=== PATIENT | female | born 2000 | race Caucasian/White ===

== ENCOUNTER 2025-05-22 17:26 | Emergency (ER) | payer OTHER, SELFPAY ==
--- OUTSIDE RECORDS SUMMARY | 2025-05-22 17:44 | XMS_ITS | Clinical Summary ---
Author Organization [facility] Address [address] [place] [address] Care Team Providers Care School Bus Dispatcher Name Role Phone Unavailable Primary Care Provider Unavailabl e Source Comments You are receiving this document as you are listed as the primary care provider,follow-up provider, or the patient has been referred to you for consultation.This is in compliance with the Medicare andMedicaid EHR Incentive Program,which states Providers who transition their patient to another setting of careor provider of care or refers their patient to another provider of care shouldprovide summary care record for each transition of care or referral. On license of [facility] Allergies Active AllergyReactionsCriticalityNoted DateCommentsAmoxicillinOther, see rvzyunln25/02/2018Kiwi YidwddaDztnqobxrlhYcus59/05/2017Molds & SmutsOther, see uxfmttbc87/05/2017OtherHives,DlmweikVrsc50/05/2017 Dogs and cats. Medications MedicationSigDispense QuantityRefillsLast FilledStart DateEnd DateStatus ALBUterol sulfate HFA 108 (90 Base) MCG/ACT inhaler Inhale 2 Puffs every 6 hours.Active EPINEPHrine (EPIPEN) 0.3 MG/0.3ML injection Inject 0.3 mL (0.3 mg) intramuscularly.Active predniSONE (DELTASONE) 20 MG tablet Take 2 tabs (40 mg) daily for 5 days. Take with food. 10 Tablet 5Active Social History Tobacco UseTypesPacks/DayYears UsedDateSmoking Tobacco: Every DayCigarettes Tobacco Cessation:Ready to Q uit: Not Asked; Counseling Given: Not Answered CommentsNoSex and Gender InformationValueDate RecordedSex Assigned at BirthNot on fileLegal RpuIxdssg06/22/2025 4:00 PM CSTGender IdentityNot on file Sexual OrientationNot on file Last Filed Vital Signs Vital SignReadingTime TakenCommentsBlood Griubyac902/52007/25/2024 4:12 PM BUDGET ASSISTANT Emhjp3231/22/2025 4:12 PM EIQGzrmcetrcrz21.7 ??C (98 ??F)07/25/2024 4:12 PM BUDGET ASSISTANT Respiratory Viuk426807/25/2024 4:12 PM CSTOxygen Rrqakqoydn94%07/25/2024 4:12 PM CSTInhaled Oxygen Concentration--Weight--Height--Body Mass Index-- Plan of Treatment Health MaintenanceDue DateLast DoneCommentsCervical Cancer Screening Due 2000Hep C Screening (Preventive Services)2000HPV Vaccine (1 - 3-dose series)2015HIV Screening (Preventive Services)2016Adult Preventive Visit2018DTaP/Tdap/Td Vaccine (1 - Tdap)2019HepB Vaccine (1) 2019Pneumococcal Vaccine (1 of 2 - PCV)05/16/20198911Wnklycsvx29/09/2022 1COVID-19 Vaccine (1 - season)2025Influenza Vaccine (#1) 2025Zoster/Shingles Vaccine (1 of 2)2050HepA VaccineAged OutNo longer eligible based on patient's age to complete this topicHib VaccineAged Out No longer eligible based on patient's age to complete this topicIPV (Polio) VaccineAged OutNo longer eligible based on patient's age to complete this topic MCV4 VaccineAged OutNo longer eligible based on patient's age to complete this topicMeningococcal B VaccineAged OutNo longer eligible based on patient's age to complete this topic Insurance
--- OUTSIDE RECORDS SUMMARY | 2025-05-22 17:44 | XMS_ITS | Clinical Summary ---
Author Organization [facility] Address [address] [place] [address] Care Team Providers Care Bag Builder Name Role Phone Bessy Norman MD Unavailable [phone] Morgan Bentley MD Unavailable No Ref-Primary, Physician Primary Care Provider Allergies Active AllergyReactionsCriticalityNoted EfxsGmldaehvGpjqncvasma77/02/2018Animal DanderHives,Cabbwya3302/05/2017 Dogs and cats. CkrqNfgapzsflgzVelq27/05/3767Vehc55/05/2017 Medications MedicationSigDispense QuantityRefillsLast FilledStart DateEnd DateStatus norethindrone-ethinyl estradiol-iron (ESTROSTEP FE) 1-20/1-30/1-35 MG-MCG per tablet Indications:Generalized morphea,Chronic bilateral low back pain without sciatica Take 1 tablet by mouth dailyActive EPINEPHrine (EPIPEN/ADRENACLICK/OR ANY BX GENERIC EQUIV) 0.3 MG/0.3ML injection 2-pack Inject 0.3 mg into the muscle as needed for anaphylaxisActive PARoxetine HCl (PAXIL PO) Take 10 mg by mouth dailyActive BusPIRone HCl (BUSPAR PO) Active albuterol (PROAIR HFA/PROVENTIL HFA/VENTOLIN HFA) 108 (90 Base) MCG/ACT Inhaler Inhale 2 puffs into the lungs every 6 hoursActive Active Problems ProblemNoted DateDiagnosed DateGeneralized uplplpa2302/05/2017Back pain02/05/2017 Social History Tobacco UseTypesPacks/DayYears UsedDateSmoking Tobacco: Every DaySmokeless Tobacco: NeverAdolescent EducationAnswerDate RecordedGetting School Help Needed Not on file3CommentsNoSex and Gender InformationValueDate RecordedSex Assigned at YqdakUrdsfx24/10/2024 9:14 AM CDTLegal SexFemale 08/23/2020 10:50 AM CDTGender AqdxgsolMbpqkj04/10/2024 9:14 AM CDTSexual SzydusxhziuQffljkyr22/10/2024 9:14 AM CDT Last Filed Vital Signs Vital SignReadingTime TakenCommentsBlood Vrlkhewg387/7306/12/2024 10:30 AM TAPE EDGE MACHINE OPERATOR Vtmfy76279/10/2025 10:30 AM NDSVadlujvhwmp44.4 ??C (101.2 ??F)06/12/2024 10:30 AM CSTRespiratory Cdki256906/12/2024 10:30 AM CSTOxygen Nbwcokodjh90%06/12/2024 10:30 AM CSTInhaled Oxygen Concentration--Ehtyzm44.7 kg (140 lb 6.9 oz) 06/12/2024 10:30 AM JOSWcxtdb320 cm (5' 3)06/12/2024 10:30 AM CSTBody Mass Index24.8806/12/2024 10:30 AM TAPE EDGE MACHINE OPERATOR Plan of Treatment Health MaintenanceDue DateLast DoneCommentsADVANCE CARE UQFFGANO2000ANNUAL REVIEW OF HM CRANKK80 2000YEARLY PREVENTIVE VISIT2003HPV VACCINE (1 - 3-dose series)2015HEPATITIS C KOLQAZCSB54/14/2018HEPATITIS B VACCINE (1 of 3 - 19+ 3-dose series)2019PHQ-2 (once per calendar year)2024PAP 502COVID-19 VACCINE (1 - 2024- season)2025INFLUENZA VACCINE (#1)2025DTAP/TDAP/TD VACCINE (1 - Tdap)2025ZOSTER VACCINE (1 of 2)2050HIV OXDOGBOKXIwufmemuy13/30/2017CHLAMYDIA SCREENINGDiscontinued 08/09/2020, 10/19/2019, 12/19/2017, Additional history existsMENINGITIS B VACCINEAged OutNo longer eligible based on patient's age to complete this topic MENINGITIS VACCINEAged OutNo longer eligible based on patient's age to complete this topicPNEUMOCOCCAL VACCINE: PEDIATRICS (0 to 5 YEARS) AND AT-RISK PATIENTS (6 to 49 YEARS)Aged OutNo longer eligible based on patient's age to complete this topic Procedures Procedure NamePriorityDate/TimeAssociated DiagnosisCommentsGYNECOLOGIC CYTOLOGY Swzaajr3106/19/2021 2:45 PM TAPE EDGE MACHINE OPERATOR Encounter for gynecological examination (general) (routine) without abnormal findings [ICD-10-CM] CHLAMYDIA TRACHOMATIS WBXUknrnjv25/09/2021 2:35 PM TAPE EDGE MACHINE OPERATOR HIV ANTIGEN ANTIBODY SKVOBJzgbnzy13/30/2017 2:20 PM TAPE EDGE MACHINE OPERATOR from Last 3 Months or Most Recently Relevant to Health Maintenance Results * Gynecologic Cytology (PAP) (06/19/2021 2:45 PM TAPE EDGE MACHINE OPERATOR)ComponentValueRef RangeTest MethodAnalysis TimePerformed AtPathologist SignatureInterpretationNegative for Intraepithelial Lesion or Malignancy (NILM)06/21/2021 11:26 AM [facility] at 1126 CSTComment Papanicolaou Test Limitations: Cervical cytology is a screening test with limited sensitivity, and regular screening is critical for cancer prevention. Pap tests are primarily effective for the diagnosis/prevention of squamous cell carcinoma, not adenocarcinoma or other cancers. 06/21/2021 11:26 AM CSTSJO LABORATORYSpecimen AdequacySatisfactory for evaluation, endocervical/transformation zone component xyesdai6106/21/2021 11:26 AM CSTSJO LABORATORYClinical Fzhkswcueozzllf44/19/2022 11:26 AM CSTSJO LABORATORYReflex TestingYes if ASCUS06/21/2021 11:26 AM [facility] Previous Abnormal?No06/21/2021 11:26 AM CSTSJO LABORATORYPerforming LabsThe technical component of this testing was completed at [facility] Hqwgmldylq31/19/2022 11:26 AM [facility] LABORATORYSpecimen (Source) Anatomical Location / LateralityCollection Method / VolumeCollection Time Received TimeBrushingENDOCERVICAL STRUCTURE / Eoeuzbf2606/19/2021 2:45 PM TAPE EDGE MACHINE OPERATOR 06/20/2021 6:57 AM TAPE EDGE MACHINE OPERATOR Narrative Authorizing ProviderResult TypeResult StatusWhallison SHERMAN Final ResultPerforming OrganizationAddressCity/State/ZIP CodePhone Number [facility] [address] [address], [facility] [phone] * Chlamydia trachomatis PCR (08/09/2020 2:35 PM TAPE EDGE MACHINE OPERATOR)ComponentValueRef RangeTest MethodAnalysis TimePerformed AtPathologist SignatureChlamydia Trachomatis ChkoopesCaiixsat88/11/2021 1:08 PM [facility]STGLAC[facility] LABORATORYSpecimen (Source)Anatomical Location / LateralityCollection Method / VolumeCollection TimeReceived TimeBody fluid specimen (specimen)ENDOCERVICAL STRUCTURE / Vhjoada0008/09/2020 2:35 PM CST08/09/2020 5:47 PM TAPE EDGE MACHINE OPERATOR Narrative Authorizing ProviderResult TypeResult StatusAmber [facility] ORDERABLESFinal ResultPerforming OrganizationAddressCity/State/ZIP Code Phone Number [facility] [address] [address], [facility] [phone] [facility] [address] [place] [address] * HIV Antigen Antibody Combo (05/02/2017 2:20 PM TAPE EDGE MACHINE OPERATOR)ComponentValueRef RangeTest MethodAnalysis TimePerformed AtPathologist SignatureHIV Antigen Antibody UmnxyDrsiaahkLzmlqddo20/30/2017 7:54 PM CSTGLACIAL RIDGE [facility] LABORATORYSpecimen (Source)Anatomical Location / LateralityCollection Method / VolumeCollection TimeReceived TimeBlood specimen (specimen)05/02/2017 2:20 PM CST05/02/2017 6:15 PM TAPE EDGE MACHINE OPERATOR Narrative Authorizing ProviderResult TypeResult StatusWhithieu DAVILA-CLAMallika - BLOOD ORDERABLESFinal ResultPerforming OrganizationAddressCity/State/ZIP CodePhone Number [facility] [address] [place] [address], [facility] [address] [place] [phone] from Last 3 Months or Most Recently Relevant to Health Maintenance Insurance * Guarantor: Viki LERMA TypeRelation to PatientDate of BirthPhone Billing AddressPersonal/UhtjlpEuvqts21/25/1975 [place] [address] * Guarantor: Viki LERMA TypeRelation to PatientDate of BirthPhone Billing AddressPersonal/NgoupwHkmxgr90/25/1975 [place] [address] Care Teams Team MemberRelationshipSpecialtyStart DateEnd Date No Ref-Primary, Physician PCP - General06/12/24 Bessy Norman MD [facility] [address] [address] MDPediatric Rheumatology01/23/17 Morgan Bentley MD [address] [place] [address] MDDermatology02/05/17
[2025-05-22 17:50] VITALS: BP 131/78; PULSE 109; RESP 20; TEMP 37.2; O2SAT 96; BMI 24.6
[2025-05-22 18:46] LABS: Strep A DNA Probe* NOT DETECTED (Not Detectd)
[2025-05-22 19:00] LABS: PCR FLU A Negative PCR FLU A (Negative); PCR FLU B Negative PCR FLU B (Negative); PCR RSV Negative PCR RSV (Negative); SARS PCR* Negative SARS-CoV-2 (Negative)
--- NOTE | 2025-05-22 20:15 | ED_ITS ---
HPI - General Adult General Date Seen: 05/22/25 Chief complaint: Sore Throat Stated complaint: Sore Throat, Fever, Ear Pain Time Seen by Provider: 05/22/25 20:14 History of Present Illness HPI narrative: 25-year-old female presenting to the ER today with fever, sore throat, earache. She woke up this morning with symptoms, in particular, a sore throat. She had a fever up to 101. She does have a history of strep and influenza infections, almost every year. The typically manifest this way and often her throat hurts more on the left than on the right. She has no known specific recent sick contacts. She woke up this morning she was feeling unwell with sore throat and fever and body aches. The pain is worse on her left than on the right. Also she is having some fullness in both of her ears are the left. She has a headache as well but typically would take Excedrin (because of her sore throat she has not been able to take this after). She is also nauseous but not vomiting. No rash. Triage nurse had indicated that she has a cough that the patient says she is really not coughing very much. She is not having any chest pain. No abdominal pain. Urination has been normal. No rashes. Related Data Previous Rx's ?Medication ?Instructions ?Recorded cefdinir 300 mg capsule 300 mg PO BID 7 days #14 cap s 05/22/25 ondansetron 4 mg disintegrating 4 mg PO Q8H PRN nausea and 05/22/25 tablet vomiting #10 tabs Allergies Allergy/AdvReac Type Severity Reaction Status Date / Time amoxicillin Allergy Unknown Verified 05/22/25 17:54 Exam Narrative: Exam Narrative: Constitutional: Appears well-developed and well-nourished. Alert. Conversant. Non toxic. She does have a sore throat and looks uncomfortable. HENT: Head: Atraumatic. Nose: Nose normal. Mouth/Throat: Oral mucosa is clear and moist. no trismus. No submandibular swelling. Teeth and gums are normal. She does have significant pharyngeal erythema and symmetrically enlarged tonsils with exudates. No vesicles. Uvula midline. Phonation normal. She is controlling oral secretions. She is protecting her airway. Right ear: Pinna, mastoid, canal, TM are normal Left ear: Pinna, mastoid, canal are normal. There is some fluid and erythema of the left TM. No sign of perforation. Eyes: Conjunctivae normal. EOM normal. Pupils equal, round, and reactive to light. No scleral icterus. Neck: Normal range of motion. Neck supple. No tracheal deviation present. Cardiovascular: Normal rate, regular rhythm. No gallop. No friction rub. No murmur heard. Pulmonary/Chest: Effort normal. No stridor. No respiratory distress. No wheezes. No rales. No rhonchi Abdominal: Soft. Bowel sounds normal. No distension. No mass. No HSM. No tenderness. No rebound. No guarding. Musculoskeletal: RUE: Normal range of motion. No tenderness. No deformity LUE: Normal range of motion. No tenderness. No deformity RLE: Normal range of motion. No edema. No tenderness. No deformity LLE: Normal range of motion. No edema. No tenderness. No deformity Lymph: No cervical adenopathy. Neurological: Alert and oriented to person, place, and time. Normal strength. CN II-VII intact. No sensory deficit. GCS eye subscore is 4. GCS verbal subscore is 5. GCS motor subscore is 6. Normal coordination Skin: Skin is warm and dry. No rash noted. No pallor. Normal capillary refill. Psychiatric: Normal mood. Normal affect. Const: Vital Signs, click to edit/add: Vital Signs - 24 hr 05/22/25 17:50 Temperature 98.9 F Pulse Rate [Pulse Oximeter] 109 H Respiratory Rate 20 Blood Pressure [Ri ght Upper Arm] 131/78 Pulse Oximetry 96 Oxygen Delivery Me thod Room Air Course Vital Signs Vital signs: Initial Vital Signs Temperature 98.9 F 05/22/25 17:50 Temperature Source Temporal Artery Scan 05/22/25 17:50 Pulse Rate 109 H 05/22/25 17:50 Respiratory Rate 20 05/22/25 17:50 Blood Pressure 131/78 05/22/25 17:50 Blood Pressure Mean 95 05/22/25 17:50 Blood Pressure Position Sitting 05/22/25 17:50 Pulse Oximetry 96 05/22/25 17:50 Oxygen Delivery Method Room Air 05/22/25 17:50 Vital Signs Temperature 98.9 F 05/22/25 17:50 Pulse Rate 109 H 05/22/25 17:50 Respiratory Rate 20 05/22/25 17:50 Blood Pressure 131/78 05/22/25 17:50 Pulse Oximetry 96 05/22/25 17:50 Oxygen Delivery Method Room Air 05/22/25 17:50 Temperature 98.9 F 05/22/25 17:50 Pulse Rate 109 H 05/22/25 17:50 Respiratory Rate 20 05/22/25 17:50 Blood Pressure 131/78 05/22/25 17:50 Pulse Oximetry 96 05/22/25 17:50 Oxygen Delivery Method Room Air 05/22/25 17:50 Medications Administered Medications: Discontinued Medications Generic Name Dose Route Start Last Admin Trade Name Freq PRN Reason Stop Dose Admin Acetaminophen/Aspirin/Caffeine 2 tab 05/22/25 20:47 05/22/25 21:05 Aspirin/Acetaminophen/Caffeine 1 Tablet PO 05/22/25 20:48 2 tab ONCE ONE Administration Ondansetron HCl 4 mg 05/22/25 20:48 05/22/25 21:05 Ondansetron Odt 4 Mg Tab PO 05/22/25 20:49 4 mg ONCE ONE Administration Medical Decision Making [facility] Narrative Medical decision making narrative: This patient presented with sore throat and clinical evidence of pharyngitis. She also has fever, headache, ear pain. At triage she had a strep swab that was negative and a viral trouble swab that was negative. On my clinical exam she clear has signs of exudate of pharyngitis. She does have exudative pharyngitis, fever, absence of cough, but does not have cervical adenopathy. At this point I do not think 3/4 Centor criteria in the face of a negative strep swab would be indication for antibiotics. However she also clearly has signs of a left ear infection. We will put her on antibiotics for that ear infection and inc identally they would also cover if there were a strep throat. Given her her allergy she cannot take amoxicillin. She is uncomfortable here in the ER and she requested nurses to cut her Excedrin pill (for her headache) into small pieces. She would prefer liquid antibiotics. I gave her A [facility] prescription for Cefzil which would cover her ear as well as possible strep throat. There is no clinical evidence of peritonsillar abscess, retropharyngeal abscess, Lemierre's Syndrome, epiglottis, or Marcel's angina. Although she has headache associated with this illness, clinical presentation not consistent with meningitis. At this point I do not think she needs neuro imaging or lumbar puncture. Although she is febrile she is overall nontoxic. She is well hydrated. Would hold off on IV or labs for now. No indication for IV antibiotics. It is also possible that her pharyngitis is due to a viral infection. She has a history of mono several years ago. No other vescular lesions to suggest HFM. Return if increasing pain, change in voice, neck pain, vomiting, fever, or shortness of breath. Precautions for return to the ER reviewed. Follow-up with primary physician if not improving in 3-5 days. Lab Data Labs: Lab Results 05/22/25 Range/Units 17:55 SARS-CoV-2 (PCR) Negative SARS-CoV-2 (Negative) Influenza Type A (PCR) Negative PCR FLU A (Negative) Influenza Type B (PCR) Negative PCR FLU B (Negative) RSV (PCR) Negative PCR RSV (Negative) Group A Strep DNA NOT DETECTED (Not Detectd) Discharge Plan Discharge Clinical Impression: Pharyngitis, Otitis media Patient Disposition: Home, Self-Care Condition: Stable Instructions: Pharyngitis (ED), Ear Infection (ED) Additional Instructions: As we discussed, your influenza a/coronavirus/respiratory syncytial virus nasal swab is negative. Her throat swab is negative. However we do see signs of a significant tonsillitis and a left ear infection. We are going to start you on antibiotics to treat your ear infection. The antibiotic is called Omnicef (cefdinir). If it turns out that your sore throat is due to strep or other bacteria, after all, the antibiotic will help her sore throat get better. It is also possible that your sore throat is being caused by a virus and may get better on its own after a few days. Please use the nausea medicine if needed. Drink plenty of fluids and eat soft foods. Were card to stay hydrated and keep healthy nutrition. Be sure to keep using Tylenol or ibuprofen or Excedrin as needed to help with your pain and fever. Please come back to the ER right away if you have uncontrolled vomiting, if you are not able to keep up with hydration, weakness, dizziness, if he develops trouble breathing or worsening cough, or if you have any concerns. Prescriptions: New cefdinir 300 mg capsule 300 mg PO BID 7 Days Qty: 14 0RF ondansetron 4 mg tablet,disintegrating 4 mg PO Q8H PRN (Reason: nausea and vomiting) Qty: 10 0RF Follow Up/Referrals: Provider,Not a Local [Primary Care Provider, Family Practice] Stand Alone Forms: [employer] Info Instructions
[2025-05-22] MEDS: ASPIRIN/ACETAMINOPHEN/CAFFEINE 1 TABLET 2 TAB PO (21:05)
[2025-05-22] MEDS: ONDANSETRON ODT 4 MG TAB PO (21:05)
== END 2025-05-22 21:53 | disposition home or self-care (01) ==
LOC: ED 21:43
PROVIDERS: Emergency Provider Emergency Medicine
DX: H66.92 Otitis media, unspecified, left ear (principal); J02.9 Acute pharyngitis, unspecified
CPT/HCPCS: 87631; 87651; 99283; 99284; A9270

== ENCOUNTER 2025-05-23 18:15 | Emergency (ER) | payer OTHER, SELFPAY ==
--- OUTSIDE RECORDS SUMMARY | 2025-05-23 18:17 | XMS_ITS | Clinical Summary ---
Author Organization [facility] Address [address] [place] [address] Care Team Providers Care Sales And Service Agent Name Role Phone Unavailable Primary Care Provider [...] for each transition of care or referral. [facility] Allergies Active AllergyReactionsCriticalityNoted DateCommentsAmoxicillinOther, see rtpgqlep23/02/2018Kiwi OeplkjuUemuelmxcqqNcoa28/05/2017Molds & SmutsOther, see gjuljpkq97/05/2017OtherHives,OribjstUfga97/05/2017 Dogs and cats. Medications MedicationSigDispense QuantityRefillsLast FilledStart [...] InformationValueDate RecordedSex Assigned at BirthNot on fileLegal WfeGsiyyi47/22/2025 4:00 PM CSTGender IdentityNot on file Sexual OrientationNot on file Last Filed Vital Signs Vital SignReadingTime TakenCommentsBlood Qyxlqnlc673/52007/25/2024 4:12 PM STENOTYPIST Whxfo3137/22/2025 4:12 PM KJHBjbmnxtgycc44.7 ??C (98 ??F)07/25/2024 4:12 PM STENOTYPIST Respiratory Rpdj946407/25/2024 4:12 PM CSTOxygen Bwfjobtiud39%07/25/2024 4:12 PM CSTInhaled Oxygen Concentration--Weight--Height--Body Mass Index-- Plan of Treatment Health MaintenanceDue DateLast DoneCommentsCervical Cancer Screening Due 2000Hep C Screening (Preventive Services)2000HPV Vaccine (1 - 3-dose series)2015HIV Screening (Preventive Services)2016Adult Preventive Visit2018DTaP/Tdap/Td Vaccine (1 - Tdap)2019HepB Vaccine (1) 2019Pneumococcal Vaccine (1 of 2 - PCV)05/16/20191329Shitzlsuv55/09/2022 1COVID-19 Vaccine (1 - season)2025Influenza Vaccine (#1) [...]
--- OUTSIDE RECORDS SUMMARY | 2025-05-23 18:17 | XMS_ITS | Clinical Summary ---
Author Organization [place] Address [address] [facility] [place] [address] Care Team Providers Care Residential Treatment Counselor Name Role Phone Bessy Norman MD Unavailable [phone] Morgan Bentley MD Unavailable [phone] No Ref-Primary, Physician Primary Care Provider Allergies Active AllergyReactionsCriticalityNoted VqiuPtdbnqyxVttpnspduzx22/02/2018Animal DanderHives,Wojyqpy1602/05/2017 Dogs and cats. VgbvBiovifhkujzIhxj99/05/2118Tzov36/05/2017 Medications MedicationSigDispense QuantityRefillsLast FilledStart DateEnd DateStatus norethindrone-ethinyl [...] 6 hoursActive Active Problems ProblemNoted DateDiagnosed DateGeneralized qqnhuij8402/05/2017Back pain02/05/2017 Social History Tobacco UseTypesPacks/DayYears UsedDateSmoking Tobacco: Every DaySmokeless Tobacco: NeverAdolescent EducationAnswerDate RecordedGetting School Help Needed Not on file3CommentsNoSex and Gender InformationValueDate RecordedSex Assigned at CaatxIysbik99/10/2024 9:14 AM CDTLegal SexFemale 08/23/2020 10:50 AM CDTGender NserjpxpIdiabo22/10/2024 9:14 AM CDTSexual OiunfvfdmjkRzfckgrl39/10/2024 9:14 AM CDT Last Filed Vital Signs Vital SignReadingTime TakenCommentsBlood Ttpwhfde136/7306/12/2024 10:30 AM DEPUTY CORONER Ospmw41526/10/2025 10:30 AM LGLIdigetlyxsb70.4 ??C (101.2 ??F)06/12/2024 10:30 AM CSTRespiratory Uwqj351806/12/2024 10:30 AM CSTOxygen Xgjsfhzpdc70%06/12/2024 10:30 AM CSTInhaled Oxygen Concentration--Ekxgix27.7 kg (140 lb 6.9 oz) 06/12/2024 10:30 AM KTAHiqlep379 cm (5' 3)06/12/2024 10:30 AM CSTBody Mass Index24.8806/12/2024 10:30 AM DEPUTY CORONER Plan of Treatment Health MaintenanceDue DateLast DoneCommentsADVANCE CARE PRVDGEOB2000ANNUAL REVIEW OF HM UVHTYO43 2000YEARLY PREVENTIVE VISIT2003HPV VACCINE (1 - 3-dose series)2015HEPATITIS C JIGCPKTFL71/14/2018HEPATITIS B VACCINE (1 of 3 - 19+ 3-dose series)2019PHQ-2 (once per calendar year)2024PAP 502COVID-19 VACCINE (1 - 2024- season)2025INFLUENZA VACCINE (#1)2025DTAP/TDAP/TD VACCINE (1 - Tdap)2025ZOSTER VACCINE (1 of 2)2050HIV RABWTZKIVOwrvjjnls83/30/2017CHLAMYDIA SCREENINGDiscontinued 08/09/2020, 10/19/2019, 12/19/2017, Additional history existsMENINGITIS B VACCINEAged OutNo longer eligible based on patient's age to complete this topic MENINGITIS VACCINEAged OutNo longer eligible based on patient's age to complete this topicPNEUMOCOCCAL VACCINE: PEDIATRICS (0 to 5 YEARS) AND AT-RISK PATIENTS (6 to 49 YEARS)Aged OutNo longer eligible based on patient's age to complete this topic Procedures Procedure NamePriorityDate/TimeAssociated DiagnosisCommentsGYNECOLOGIC CYTOLOGY Quyhzol6206/19/2021 2:45 PM DEPUTY CORONER Encounter for gynecological examination (general) (routine) without abnormal findings [ICD-10-CM] CHLAMYDIA TRACHOMATIS QFCEtwusnn65/09/2021 2:35 PM DEPUTY CORONER HIV ANTIGEN ANTIBODY WSAKNBolgnef56/30/2017 2:20 PM DEPUTY CORONER from Last 3 Months or Most Recently Relevant to Health Maintenance Results * Gynecologic Cytology (PAP) (06/19/2021 2:45 PM DEPUTY CORONER)ComponentValueRef RangeTest MethodAnalysis TimePerformed AtPathologist SignatureInterpretationNegative for Intraepithelial [...] LABORATORYSpecimen AdequacySatisfactory for evaluation, endocervical/transformation zone component patvftd2706/21/2021 11:26 AM C[facility] LABORATORYClinical Nwttvzpyjvxtkof91/19/2022 11:26 AM CSTS[facility] LABORATORYReflex TestingYes if ASCUS06/21/2021 11:26 AM [facility] Previous Abnormal?No06/21/2021 11:26 AM CSTSJO LABORATORYPerforming LabsThe technical component of this testing was completed at [facility] Zpkmgmvrad29/19/2022 11:26 AM [facility] LABORATORYSpecimen (Source) Anatomical Location / LateralityCollection Method / VolumeCollection Time Received TimeBrushingENDOCERVICAL STRUCTURE / Awgwzai6806/19/2021 2:45 PM DEPUTY CORONER 06/20/2021 6:57 AM DEPUTY CORONER Narrative Authorizing ProviderResult TypeResult StatusWhallison SHERMAN Final ResultPerforming OrganizationAddressCity/State/ZIP CodePhone Number [facility] [address] [address], [facility] [phone] * Chlamydia trachomatis PCR (08/09/2020 2:35 PM DEPUTY CORONER)ComponentValueRef RangeTest MethodAnalysis TimePerformed AtPathologist SignatureChlamydia Trachomatis FrrjieubLwvresfn72/11/2021 1:08 PM [facility] LABORATORYSpecimen (Source)Anatomical Location / LateralityCollection Method / VolumeCollection TimeReceived TimeBody fluid specimen (specimen)ENDOCERVICAL STRUCTURE / Uabucez7908/09/2020 2:35 PM CST08/09/2020 5:47 PM DEPUTY CORONER Narrative Authorizing ProviderResult TypeResult StatusAmber [facility] ORDERABLESFinal ResultPerforming OrganizationAddressCity/State/ZIP Code Phone Number [facility] [address] [address], [facility] [phone] [facility] [address] [place] [address] * HIV Antigen Antibody Combo (05/02/2017 2:20 PM DEPUTY CORONER)ComponentValueRef RangeTest MethodAnalysis TimePerformed AtPathologist SignatureHIV Antigen Antibody LpcutOzddwornYvwcwghp06/30/2017 7:54 PM [facility] LABORATORYSpecimen (Source)Anatomical Location / LateralityCollection Method / VolumeCollection TimeReceived TimeBlood specimen (specimen)05/02/2017 2:20 PM CST05/02/2017 6:15 PM DEPUTY CORONER Narrative Authorizing ProviderResult TypeResult StatusWhithieu DAVILA-CLAMallika - BLOOD ORDERABLESFinal ResultPerforming OrganizationAddressCity/State/ZIP CodePhone Number [facility] [address] [place] [phone], [facility] [address] [place] [phone] from Last 3 Months or Most Recently Relevant to Health Maintenance Insurance * Guarantor: Viki LERMA TypeRelation to PatientDate of BirthPhone Billing AddressPersonal/XacxxhHlciom55/25/1975 [place] [address] * Guarantor: Viki LERMA TypeRelation to PatientDate of BirthPhone Billing AddressPersonal/MvlvesOzvidr73/25/1975 [place] [address] Care Teams Team MemberRelationshipSpecialtyStart DateEnd Date No Ref-Primary, Physician PCP - General06/12/24 Bessy Norman MD [facility] [address] [address] MDPediatric Rheumatology01/23/17 Morgan Bentely MD [address] [place] [address] MDDermatology02/05/17
[2025-05-23 18:24] VITALS: BP 107/68; PULSE 94; RESP 20; TEMP 37.1; O2SAT 98; BMI 24.6
--- NOTE | 2025-05-23 18:44 | ED.GENADULT ---
HPI - General Adult General Date Seen: 05/23/25 Chief complaint: Sore Throat Stated complaint: Throat pain, fever pain Time Seen by Provider: 05/23/25 18:29 History of Present Illness HPI narrative: 25-year-old female returning to the ER today for sore throat. I saw her here in the ER yesterday with symptoms of sore throat, worse on the left than on the right, also left ear pain and fever. She did have an exudate of pharyngitis with bilaterally and symmetrically enlarged tonsils with exudates. Airway was patent. No exam evidence for ASSEMBLER WET WASH or RPA. Strep swab was negative. She also had exam findings of a left otitis media. She was treated with liquid sessile for her ear infection, which would incidentally also cover group a strep if we had gotten a false negative test. She was able to tolerate liquid yesterday and was able to discharge home. Throughout the day today she has had worsening throat pain. She took ibuprofen at 8:00 a.m. and Tylenol at noon but says they are not helping. She is having more pain on the left side than on the right side. Also pain with swallowing. Related Data Previous Rx's ?Medication ?Instructions ?Recorded cefdinir 300 mg capsule 300 mg PO BID 7 days #14 caps 05/22/25 ondansetron 4 mg disintegrating 4 mg PO Q8H PRN nausea and 05/22/25 tablet vomiting #10 tabs oxycodone 5 mg/5 mL oral solution 5 mg (5 mL) PO Q4-6H PRN pain #60 05/23/25 mL Allergies Allergy/AdvReac Type Severity Reaction Status Date / Time amoxicillin Allergy Unknown Verified 05/23/25 20:55 PFSH PFS Social History Smoking Status: Current every day smoker Do you use any of these nicotine containing products: None Second hand tobacco smoke exposure: No How often do you have a drink containing alcohol: monthly or less How many standard drinks containing alcohol do you have on a typical day: 1 or 2 How often do you have six or more drinks on one occasion: Less than monthly AUDIT-C Alcohol total score: 2 Non-prescribed substance use: marijuana (any form) service: No Exam Narrative: Exam Narrative: Constitutional: Appears well-developed and well-nourished. Alert. Conversant and able to speak full sentences. No stridor. No ?hot potato? voice. Looks worse than yesterday and more uncomfortable and dehydrated.. HENT: Head: Atraumatic. Nose: Nose normal. Right ear: Mastoid, pinna, canal, TM normal. Left ear: Mastoid, pinna, canal normal. TM is somewhat erythematous. Not is bulging is yesterday. Mouth/Throat: Oral mucosa is clear and moist. no trismus. Submandibular tissues are normal. She does have marked bilateral tonsillar erythema with exudates. Left tonsil is definitely bigger than the right. The uvula is midline but the left tonsil is touching it and the right tonsil is not quite touching it. Suspicious but not really definitive for peritonsillar abscess. Patient reports that her left tonsil is usually more painful than the right when she gets throat infections. Eyes: Conjunctivae normal. EOM normal. Pupils equal, round, and reactive to light. No scleral icterus. Neck: Normal range of motion. Neck supple. No tracheal deviation present. Cardiovascular: Normal rate, regular rhythm. No gallop. No friction rub. No murmur heard. Symmetric radial artery pulses Pulmonary/Chest: Effort normal. No stridor. No respiratory distress. No wheezes. No rales. No rhonchi . No tenderness. Abdominal: Soft.. No distension. No mass. No HSM. No tenderness. No rebound. No guarding. Musculoskeletal: RUE: Normal range of motion. No tenderness. No deformity LUE: Normal range of motion. No tenderness. No deformity RLE: Normal range of motion. No edema. No tenderness. No deformity LLE: Normal range of motion. No edema. No tenderness. No deformity Lymph: No cervical adenopathy. No supraclavicular adenopathy. Neurological: Alert and oriented to person, place, and time. Normal strength. CN II-VII intact. No sensory deficit. GCS eye subscore is 4. GCS verbal subscore is 5. GCS motor subscore is 6. Normal coordination Skin: Skin is warm and dry. No rash noted. No pallor. Normal capillary refill. Psychiatric: Normal mood. Normal affect allowing for discomfort. Const: Vital Signs, click to edit/add: Vital Signs - 24 hr 05/23/25 18:24 Temperature 98.8 F Pulse Rate [Pulse Oximeter] 94 Respiratory Rate 20 Blood Pressure [Ri ght Upper Arm] 107/68 Pulse Oximetry 98 Oxygen Delivery Me thod Room Air Course Course ED Course: Recheck-had been sleeping. Says the throat pain is still there but feeling better. She is able to tolerate sips of water. She says she is very hungry. Reevaluation(s) Reevaluation #1: Recheck-she did tolerate an entire cup of apple sauce. It hurts to swallow but she is keeping it down. She is now sipping some water. We discussed options including admission for IV hydration and pain control persist attempts to manage this at home with oral medications. She think she will be able to manage at home. Vital Signs Vital signs: Initial Vital Signs Temperature 98.8 F 05/23/25 18:24 Temperature Source Temporal Artery Scan 05/23/25 18:24 Pulse Rate 94 05/23/25 18:24 Pulse Rhythm Regular 05/23/25 18:24 Respiratory Rate 20 05/23/25 18:24 Blood Pressure 107/68 05/23/25 18:24 Blood Pressure Mean 81 05/23/25 18:24 Blood Pressure Position Supine 05/23/25 18:24 Pulse Oximetry 98 05/23/25 18:24 Oxygen Delivery Method Room Air 05/23/25 18:24 Vital Signs Temperature 98.8 F 05/23/25 18:24 Pulse Rate 94 05/23/25 18:24 Respiratory Rate 20 05/23/25 18:24 Blood Pressure 107/68 05/23/25 18:24 Pulse Oximetry 98 05/23/25 18:24 Oxygen Delivery Method Room Air 05/23/25 18:24 Temperature 98.8 F 05/23/25 18:24 Pulse Rate 94 05/23/25 18:24 Respiratory Rate 20 05/23/25 18:24 Blood Pressure 107/68 05/23/25 18:24 Pulse Oximetry 98 05/23/25 18:24 Oxygen Delivery Method Room Air 05/23/25 18:24 Medications Administered Medications: Discontinued Medications Generic Name Dose Route Start Last Admin Trade Name Freq PRN Reason Stop Dose Admin Dexamethasone 10 mg 05/23/25 18:46 05/23/25 19:15 Dexamethasone 4 Mg/Ml Vial IVP 05/23/25 18:47 10 mg ONCE ONE Administration Hydromorphone HCl 0.5 mg 05/23/25 18:57 05/23/25 19:41 Hydromorphone 0.5 Mg/0.5 Ml Inj IVP 0.5 mg Q1H PRN Administration Pain Sodium Chloride 1,000 mls @ 1,000 mls/hr 05/23/25 19:00 05/23/25 20:53 0.9 % Sodium Chloride 1000 Ml IV 05/23/25 19:59 Infused .Q1H DAGMAR Infusion Ketorolac Tromethamine 15 mg 05/23/25 18:46 05/23/25 19:14 Ketorolac 15 Mg/Ml Inj IVP 05/23/25 18:47 15 mg ONCE ONE Administration Ondansetron HCl 4 mg 05/23/25 18:57 05/23/25 19:14 Ondansetron 2 Mg/Ml Inj IVP 05/23/25 18:58 4 mg ONCE ONE Administration Oxycodone HCl 5 mg 05/23/25 23:34 05/23/25 23:50 Oxycodone Oral Soln 1 Mg/Ml PO 05/23/25 23:35 5 mg ONCE ONE Administration Medical Decision Making [facility] Narrative Medical decision making narrative: Pleasant 25-year-old female returning to the ER today with worsening signs of pharyngitis and sore throat that it made it difficult for her to eat or drink today and causing dehydration. She also had some nausea and vomiting prior to arrival. On my exam she clearly has signs of worsening pharyngitis with increasing size and redness of her tonsils. Also asymmetry with larger tonsil on the left. We did establish an IV and give IV fluids, nausea meds, pain meds the patient is symptomatically feeling better. We administered IV fluid bolus for dehydration. We did do lab workup and she does have a leukocytosis with a white count of 13. Fortunately kidney function are normal. Bicarb is low at 19 which reflects dehydration. LFTs are normal. She has a history of mono so doubt active mono. She is not . Soft tissue neck CT was obtained to look for possible left-sided peritonsillar abscess and fortunately his CT scan does not show any the above that. It does confirm tonsillitis. We treated her with Decadron here in the ER to help reduce the swelling. Overall she is feeling better after meds and fluids. Discussed options including admission for hydration and pain control but she prefers outpatient. We discussed return precautions. Prescription for liquid oxycodone elix provided. Use caution, because prescription pain killers can cause dizziness, drowsiness, constipation, and can be addictive. Do not drive for 6 hours after taking a prescription pain killer. Would recommend that she continue her antibiotic to treat her left ear infection as well as her tonsillitis (in case it is bacterial, although strep was negative) Lab Data Labs: Lab Results 05/23/25 Range/Units 19:20 WBC 13.61 H (4.50-11.00) K/uL RBC 4.22 (4.00-5.20) m/uL Hgb 12.5 (12.0-16.0) gm/dL Hct 36.6 (33.0-51.0) % MCV 87 (80-100) fL MCH 30 (26-34) pg MCHC 34 (32-36) gm/dL RDW Coeff of Hema 12.3 (11.5-15.5) % Plt Count 207 (140-440) K/uL Neut % (Auto) 82.6 H (42.0-72.0) % Lymph % (Auto) 8.0 L (20-44) % [place] % (Auto) 8.4 (0.0-11.0) % Eos % (Auto) 0.6 (0.0-7.0) % Baso % (Auto) 0.1 (0.0-3.0) % Neut # (Auto) 11.20 H (1.7-7.0) K/uL Lymph # (Auto) 1.10 (0.90-2.90) K/uL [place] # (Auto) 1.10 H (0.00-0.90) K/UL Eos # (Auto) 0.10 (0.00-0.50) K/uL Baso # (Auto) 0.00 (0.00-0.30) K/uL Abs Immat Gran (auto) 0.00 (0.00-0.30) K/uL Imm/Tot Granulo (auto) 0.3 % Sodium 133 L (135-149) mmol/L Potassium 3.7 (3.6-5.1) mmol/L Chloride 103 (96-114) mmol/L Carbon Dioxide 19 L (20-32) mmol/L Anion Gap 11 (7-15) mEq/L BUN 11 (5-24) mg/dL Creatinine 0.7 (0.5-1.5) mg/dL Estimated Creat Clear 110.55 Estimated GFR 123 ml/min Glucose 106 (60-115) mg/dL Calcium 8.6 (8.4-10.6) mg/dL Total Bilirubin 0.4 (0.1-1.5) mg/dL AST 16 (12-35) U/L ALT 16 (4-35) U/L Alkaline Phosphatase 55 (40-150) U/L Total Protein 7.0 (6.0-8.3) g/dL Albumin 4.1 (3.3-5.0) g/dL HCG, Quant < 2.39 mIU/mL Imaging Data CT neck: Attestation: I have reviewed the pertinent imaging results. Radiologist's impression: IMPRESSION: Acute tonsillitis and adenoiditis without abscess or other complication. Please note that all CT scans at this facility use dose modulation, Discharge Plan Discharge Clinical Impression: Pharyngitis, Dehydration, Otitis media Patient Disposition: Home, Self-Care Condition: Stable Instructions: Dehydration (ED), Pharyngitis (ED), Ear Infection (ED) Additional Instructions: As we discussed, please come back to the ER right away if you have worsening symptoms especially worsening pain with swallowing, inability to swallow, trouble breathing, weakness, high fever. You can use aueo-gvx-hbuqsak medications such as Tylenol or ibuprofen if needed. If you have pain uncontrolled by those medications you can take the prescription pain killer (oxycodone). Use caution, because prescription pain killers can cause dizziness, drowsiness, constipation, and can be addictive. Do not drive for 6 hours after taking a prescription pain killer. Please continue on your antibiotic. If you are not better within 48-72 hours, please see your doctor or come back to the ER for recheck. If you get worse, come back to the ER right away. Even if you get better, please recheck with the ENT clinic. To make an appointment with [facility] you can call [phone] Prescriptions: New oxycodone 5 mg/5 mL solution 5 mg PO Q4-6H PRN (Reason: pain) Qty: 60 0RF No Action cefdinir 300 mg capsule 300 mg PO BID 7 Days Qty: 14 0RF ondansetron 4 mg tablet,disintegrating 4 mg PO Q8H PRN (Reason: nausea and vomiting) Qty: 10 0RF Follow Up/Referrals: Provider,Not a Local [Primary Care Provider, Family Practice] Stand Alone Forms: [employer] Info Instructions
--- NOTE | 2025-05-23 18:46 | CRLHL7_ITS ---
For Patients: As a result of the Century Cures Act, medical imaging exams and procedure reports are released immediately into your electronic medical record. You may view this report before your referring provider. If you have questions, please contact your health care provider. INDICATION: Pharyngitis with throat pain. TECHNIQUE: CT soft tissue of the neck was acquired with 72 cc Isovue 370 IV contrast. COMPARISON: None. FINDINGS: Skull base: Unremarkable. Pharynx/Larynx/Trachea: Epiglottis is normal. The tonsils and adenoids are edematous. No sign of abscess or phlegmon. Salivary glands: Unremarkable. Thyroid gland: Unremarkable. No significant nodules. Lymph nodes: Enlarged reactive bilateral lymph nodes. Vessels: Unremarkable for age. Bones: Unremarkable for age. Misc: No inflammation, mass or fluid collection. Lung apices: Unremarkable. IMPRESSION: Acute tonsillitis and adenoiditis without abscess or other complication. Please note that all CT scans at this facility use dose modulation, iterative reconstruction, and/or weight-based dosing when appropriate to reduce radiation dose to as low as reasonably achievable. Dictated by Get Anderson MD @ 05/23/2025 9:08:52 PM (Electronically Signed)
[2025-05-23] MEDS: ONDANSETRON 2 MG/ML inj 4 MG IVP (19:14)
[2025-05-23 19:34] LABS: Hematocrit* 36.6 % (33.0-51.0); Hemoglobin* 12.5 gm/dL (12.0-16.0); Immature Granulocytes Pct Auto 0.3 %; Mean Corpuscular HGB Conc 34 gm/dL (32-36); Mean Corpuscular Hemoglobin 30 pg (26-34); Mean Corpuscular Volume 87 fL (80-100); RDW Coefficient of Variation % 12.3 % (11.5-15.5); Red Blood Count* 4.22 m/uL (4.00-5.20); White Blood Count* 13.61 K/uL (4.50-11.00)
[2025-05-23 19:36] LABS: Immature Granulocytes Abs Auto 0.00 K/uL (0.00-0.30); Lymphocytes Absolute Auto 1.10 K/uL (0.90-2.90); Slide Review Reflex No
[2025-05-23 19:48] LABS: Chloride* 103 mmol/L (96-114)
[2025-05-23 19:49] LABS: Albumin* 4.1 g/dL (3.3-5.0); Potassium* 3.7 mmol/L (3.6-5.1); Sodium* 133 mmol/L (135-149)
[2025-05-23 19:51] LABS: Alanine Aminotransferase* 16 U/L (4-35); Anion Gap 11 mEq/L (7-15); Aspartate Amino Transferase* 16 U/L (12-35); Blood Urea Nitrogen* 11 mg/dL (5-24); Carbon Dioxide* 19 mmol/L (20-32); Creatinine* 0.7 mg/dL (0.5-1.5); Est. Creatinine Clearance* 110.55; Estimated Glomerular Filt Rate 123 ml/min
[2025-05-23 19:52] LABS: Alkaline Phosphatase* 55 U/L (40-150); Bilirubin Total* 0.4 mg/dL (0.1-1.5); Calcium* 8.6 mg/dL (8.4-10.6); Glucose* 106 mg/dL (60-115); Total Protein* 7.0 g/dL (6.0-8.3)
[2025-05-23 20:09] LABS: HCG Quantitative* < 2.39 mIU/mL
== END 2025-05-24 00:10 | disposition home or self-care (01) ==
PROVIDERS: Emergency Provider Emergency Medicine
DX: J03.90 Acute tonsillitis, unspecified (principal); E86.0 Dehydration; H66.92 Otitis media, unspecified, left ear; D72.829 Elevated white blood cell count, unspecified; F17.210 Nicotine dependence, cigarettes, uncomplicated
CPT/HCPCS: 36415; 70491; 80053; 84702; 85025; 96361; 96374; 96375; 99284; 99285; A9270; J1100; J1171; J1885; J2405; J7030; Q9967